=== PATIENT | female | born 1955 | race Caucasian/White ===

== ENCOUNTER 2017-03-16 07:11 | Day surgery (SDC) | payer OTHER ==
[~2017-03-16] VITALS: Ht 162.6 cm; Wt 81.6 kg
[~2017-03-16 07:11] MED LIST: ACID REDUCER 1150 MG PO; CLINORIL200 MG PO; FLONASE16 G1 BOTH NARES; IRON325 M1 PO; OMEPRAZOLE40 M1 PO; TRAZODONE HCL50 MG PO; ULTRAM50 MG PO; VITAMIN D35000 UNIT PO; WELLBUTRIN SR150 MG PO; ZOLOFT100 MG PO
== END 2017-03-16 09:10 | disposition home or self-care (01) ==
LOC: PAIN 07:11 → SDC 08:00 → PAIN 09:10
DX: M47.816 Spondylosis without myelopathy or radiculopathy, lumbar region (principal); M54.5 Low back pain; G89.29 Other chronic pain; M43.16 Spondylolisthesis, lumbar region; M51.36 Other intervertebral disc degeneration, lumbar region; E78.5 Hyperlipidemia, unspecified; K21.9 Gastro-esophageal reflux disease without esophagitis; M50.321 Other cervical disc degeneration at C4-C5 level; M79.1 Myalgia; Z87.891 Personal history of nicotine dependence; Z79.891 Long term (current) use of opiate analgesic
CPT/HCPCS: J1030; J2250; J3010; S0020

== ENCOUNTER 2017-03-23 07:11 | Day surgery (SDC) | payer OTHER ==
[~2017-03-23] VITALS: Ht 162.6 cm; Wt 81.6 kg
== END 2017-03-23 09:15 | disposition home or self-care (01) ==
LOC: PAIN 07:11 → SDC 08:15 → PAIN 08:15
DX: M47.816 Spondylosis without myelopathy or radiculopathy, lumbar region (principal); M54.5 Low back pain; G89.29 Other chronic pain; M43.16 Spondylolisthesis, lumbar region; K21.9 Gastro-esophageal reflux disease without esophagitis; M47.812 Spondylosis without myelopathy or radiculopathy, cervical region; Z87.891 Personal history of nicotine dependence; Z79.891 Long term (current) use of opiate analgesic
CPT/HCPCS: J1030; J2250; J3010; S0020

== ENCOUNTER 2017-06-01 09:33 | Day surgery (SDC) | payer OTHER ==
[~2017-06-01] VITALS: Ht 162.6 cm; Wt 81.6 kg
[~2017-06-01 09:33] MED LIST changes: +AMBIEN10 MG PO; +NEURONTIN100 MG PO; +STOOL SOFTENER100 MG PO; +VENLAFAXINE HC150 MG PO
== END 2017-06-01 12:10 | disposition home or self-care (01) ==
LOC: PAIN 09:33 → SDC 10:30 → PAIN 12:10
DX: M47.26 Other spondylosis with radiculopathy, lumbar region (principal); M51.16 Intervertebral disc disorders with radiculopathy, lumbar region; G89.29 Other chronic pain; M43.16 Spondylolisthesis, lumbar region; M47.812 Spondylosis without myelopathy or radiculopathy, cervical region; F41.8 Other specified anxiety disorders; M79.7 Fibromyalgia; K21.9 Gastro-esophageal reflux disease without esophagitis; E78.5 Hyperlipidemia, unspecified; Z79.891 Long term (current) use of opiate analgesic; Z87.891 Personal history of nicotine dependence
CPT/HCPCS: J1030; J2250; J3010; S0020

== ENCOUNTER 2017-06-25 07:20 | Day surgery (SDC) | payer OTHER ==
[~2017-06-25] VITALS: Ht 162.6 cm; Wt 81.7 kg
== END 2017-06-25 08:46 | disposition home or self-care (01) ==
LOC: PAIN 07:20 → SDC 08:30 → PAIN 08:30
DX: M47.816 Spondylosis without myelopathy or radiculopathy, lumbar region (principal); M54.16 Radiculopathy, lumbar region; M16.12 Unilateral primary osteoarthritis, left hip; E78.5 Hyperlipidemia, unspecified; M54.6 Pain in thoracic spine; M79.7 Fibromyalgia; Z87.891 Personal history of nicotine dependence; K21.9 Gastro-esophageal reflux disease without esophagitis; Z79.891 Long term (current) use of opiate analgesic
CPT/HCPCS: J1030; J2250; J3010; S0020